=== PATIENT | female | born 1955 ===

== ENCOUNTER → 2018-10-04 | Outpatient (CLI) | payer MEDICARE, MEDICAID ==
[~2018-10-04] MED LIST: AMOX1TAB64 PO; CARV3.122 PO; CETI10TA32 PO; CHOL2000 PO; CITRIZINE; COREG; DOCU-131 PO; ERYTHROMYCIN 0.5% EACHEYE; HYDR25SU3 PR; HYDR25SU4 PR; HYDR25TA6 PO; MAGN400T36 PO; MONT10TA9 PO; OMEP-110 PO; OMEP20TA62 PO; OMEPRAZOLE; PANTOPRAZOLE PO; PREG150C PO; SINGULAIR INH; TRAM50TA2 PO; TRAMADOL; [UNRECOGNIZED DRUG - OTHER] INH; calcium PO
[2018-10-04 10:16] LABS: ALANINE AMINOTRANSFERASE 44 U/L (12-78); ALBUMIN 3.1 g/dL (3.4-5.0); ANION GAP 7 mmol/L (5-15); CALCIUM 8.3 mg/dL (8.5-10.1); CHLORIDE 108 mmol/L (98-107); CREATININE 0.68 mg/dL (0.55-1.02); TRIGLYCERIDES 136 mg/dL (50-200)
[2018-10-04 10:18] LABS: ALKALINE PHOSPHATASE 186 U/L (45-117); BILIRUBIN,TOTAL 0.8 mg/dL (0.2-1.0); TOTAL PROTEIN 6.6 g/dL (6.4-8.2)
== END | disposition home or self-care (01) ==
LOC: LAB 09:33
PROVIDERS: ATTEND Nurse Practitioner Family
DX: Z12.11 Encounter for screening for malignant neoplasm of colon (principal); A09 Infectious gastroenteritis and colitis, unspecified; R93.5 Abnormal findings on diagnostic imaging of other abdominal regions, including retroperitoneum; R79.89 Other specified abnormal findings of blood chemistry; Z86.010 Personal history of colon polyps
CPT/HCPCS: 36415; 80053; 82150; 82787; 83690; 84478

== ENCOUNTER 2018-11-04 20:56 | Inpatient (IN) | payer MEDICARE, MEDICAID ==
[~2018-11-04] VITALS: Ht 147.3 cm; Wt 114.7 kg
--- NOTE | 2018-11-04 21:15 | NUR ---
LA. REPORT RECEIVED FROM EMS. PT C/O SOB AND CHEST TIGHTNESS. HX OF ASTHMA. PT'S AOX4. RESPS EVEN AND UNLABORED. ALL MONITORS IN PLACE. CALL LIGHT WITHIN REACH. EDMD AT BEDSIDE TO EVALUATE.
[2018-11-04] MEDS ORDERED: NITROGLYCERIN SINGLE TAB 0.4 MG SL ONE (21:22)
[2018-11-04] MEDS ORDERED: ASPIRIN 81 MG TABLET CHEW ONE (21:22)
[2018-11-04] MEDS ORDERED: ASPIRIN 81 MG TABLET CHEW PO ONE (21:30)
[2018-11-04] MEDS ORDERED: NITROGLYCERIN SINGLE TAB 0.4 MG SL PRN (21:30)
[2018-11-04] MEDS ORDERED: SODIUM CHLORIDE FLUSH 10ML SYR IVF ONE (21:30)
[2018-11-04 22:00] LABS: BASOPHILS # (AUTO) 0.09 x10^3/uL (0-0.1); BASOPHILS % (AUTO) 2 % (0-1); EOSINOPHILS % (AUTO) 4 % (1-7); LYMPHOCYTES % (AUTO) 35 % (22-44); MD NO; MEAN CORPUSCULAR HGB CONC 33.2 g/dL (32.4-35.8); MEAN CORPUSCULAR VOLUME 99.5 fL (80-100); MEAN PLATELET VOLUME 9.2 fL (7.4-10.4); MONOCYTES # (AUTO) 0.35 x10^3/uL (0.2-0.8); MONOCYTES % (AUTO) 6 % (2-9); NEUTROPHILS # (AUTO) 2.97 x10^3/uL (1.8-6.8); NEUTROPHILS % (AUTO) 54 % (42-75); PLATELET COUNT 116 x10^3/uL (130-400); RED BLOOD COUNT 4.23 x10^6/uL (3.82-5.3); RED CELL DISTRIBUTION WIDTH 16.3 % (9.6-15.2)
[2018-11-04 22:11] LABS: ALANINE AMINOTRANSFERASE 39 U/L (12-78); ALBUMIN 3.4 g/dL (3.4-5.0); ANION GAP 10 mmol/L (5-15); CALCIUM 8.5 mg/dL (8.5-10.1); CHLORIDE 108 mmol/L (98-107); CREATININE 0.75 mg/dL (0.55-1.02)
[2018-11-04 22:15] LABS: ALKALINE PHOSPHATASE 166 U/L (45-117); BILIRUBIN,TOTAL 0.9 mg/dL (0.2-1.0); TOTAL PROTEIN 6.9 g/dL (6.4-8.2); TROPONIN I < 0.015 ng/mL (0.000-0.045)
--- NOTE | 2018-11-04 23:00 | NUR ---
REPORT GIVEN TO TAYLOR SOLER. ALL QUESTIONS ANSWERED.
[2018-11-04 23:18] VITALS: BP 129/79
[2018-11-04] MEDS ORDERED: HYDR12.575 PO (23:58)
[2018-11-04] MEDS ORDERED: MELO7.5O PO (23:58)
[2018-11-04] MEDS ORDERED: LISI-424 PO (23:58)
[2018-11-05] MEDS ORDERED: NITROGLYCERIN 0.4 MG BOTTLE (25 TABS) SL PRN (01:00)
[2018-11-05] MEDS ORDERED: BISACODYL 10 MG SUPP PR PRN (01:00)
[2018-11-05] MEDS ORDERED: ENALAPRILAT 1.25 MG/ML, 2ML IVPush PRN (01:00)
[2018-11-05] MEDS ORDERED: morphine SULFATE 10 MG/ML, 1ML IVPush PRN (01:00)
[2018-11-05] MEDS ORDERED: ONDANSETRON 2MG/ML, 2ML IVPush PRN (01:00)
[2018-11-05] MEDS ORDERED: NITROGLYCERIN 0.4 MG/SPRAY SL PRN (01:00)
[2018-11-05] MEDS ORDERED: PROMETHAZINE 25 MG/ML, 1ML IM PRN (01:00)
[2018-11-05] MEDS ORDERED: ACETAMINOPHEN 325 MG TABLET PO PRN (01:00)
[2018-11-05] MEDS ORDERED: POLYETHYLENE GLYCOL 17 GM PACKET PO PRN (01:00)
[2018-11-05 01:33] VITALS: BP 140/82
[2018-11-05] MEDS: SUCRALFATE 1 GM/10 ML UDC PO SCH ×5 (01:56→20:16)
[2018-11-05 05:40] LABS: CHOL/HDL RATIO 3.4; CHOLESTEROL, TOTAL 155 mg/dL (140-239); HDL CHOL % 30 % (28-40); HDL CHOLESTEROL (DIRECT) 46 mg/dL (40-60); LDL CHOLESTEROL,CALCULATED 93 mg/dL (54-169); TRIGLYCERIDES 81 mg/dL (50-200); TROPONIN I < 0.015 ng/mL (0.000-0.045); VLDL CHOLESTEROL 16 mg/dL (0-25)
[2018-11-05 06:40] VITALS: BP 132/85
[2018-11-05] MEDS: SENNA/DOCUSATE TABLET PO SCH (09:00)
[2018-11-05] MEDS: LISINOPRIL 5 MG TABLET PO SCH (09:26)
[2018-11-05] MEDS: HYDROCHLOROTHIAZIDE 12.5 MG CAPSULE PO SCH (09:28)
[2018-11-05] MEDS: PANTOPROZOLE 40MG TABLET PO SCH ×2 (09:28→16:22)
[2018-11-05] MEDS: PREGABALIN 150 MG CAPSULE PO SCH ×2 (09:28→20:17)
[2018-11-05 11:12] LABS: TROPONIN I < 0.015 ng/mL (0.000-0.045)
[2018-11-05 12:49] VITALS: BP 129/82
[2018-11-05 13:14] LABS: OCCULT BLOOD NEGATIVE (NEGATIVE)
[2018-11-05] MEDS: MONTELUKAST 10 MG TABLET PO SCH (20:16)
[2018-11-05 20:38] VITALS: BP 124/67
[2018-11-06 01:35] VITALS: BP 119/68
[2018-11-06 06:02] LABS: BASOPHILS # (AUTO) 0.03 x10^3/uL (0-0.1); BASOPHILS % (AUTO) 1 % (0-1); EOSINOPHILS % (AUTO) 4 % (1-7); LYMPHOCYTES # (AUTO) 2.01 x10^3/uL (1-3.4); LYMPHOCYTES % (AUTO) 39 % (22-44); MD NO; MEAN CORPUSCULAR HEMOGLOBIN 33.1 pg (27.0-34.8); MEAN CORPUSCULAR HGB CONC 33.3 g/dL (32.4-35.8); MEAN CORPUSCULAR VOLUME 99.6 fL (80-100); MEAN PLATELET VOLUME 9.2 fL (7.4-10.4); MONOCYTES # (AUTO) 0.43 x10^3/uL (0.2-0.8); MONOCYTES % (AUTO) 8 % (2-9); NEUTROPHILS # (AUTO) 2.53 x10^3/uL (1.8-6.8); NEUTROPHILS % (AUTO) 49 % (42-75); PLATELET COUNT 107 x10^3/uL (130-400); RED BLOOD COUNT 3.87 x10^6/uL (3.82-5.3); RED CELL DISTRIBUTION WIDTH 16.2 % (9.6-15.2)
[2018-11-06 06:15] VITALS: BP 115/60
[2018-11-06 06:17] LABS: ANION GAP 7 mmol/L (5-15); CALCIUM 8.1 mg/dL (8.5-10.1); CHLORIDE 109 mmol/L (98-107)
[2018-11-06] MEDS: SENNA/DOCUSATE TABLET PO SCH (09:00)
[2018-11-06 09:17] VITALS: BP 132/83
[2018-11-06] MEDS: SUCRALFATE 1 GM/10 ML UDC PO SCH ×3 (09:18→16:00)
[2018-11-06] MEDS: PANTOPROZOLE 40MG TABLET PO SCH ×2 (09:19→16:51)
[2018-11-06] MEDS: HYDROCHLOROTHIAZIDE 12.5 MG CAPSULE PO SCH (09:20)
[2018-11-06] MEDS: PREGABALIN 150 MG CAPSULE PO SCH (09:20)
[2018-11-06] MEDS: LISINOPRIL 5 MG TABLET PO SCH (09:21)
[2018-11-06] MEDS: MONTELUKAST 10 MG TABLET PO SCH (09:21)
[2018-11-06 10:53] LABS: OCCULT BLOOD NEGATIVE (NEGATIVE)
[2018-11-06] MEDS ORDERED: PANT40TA5 PO (11:57)
[2018-11-06] MEDS ORDERED: SUCR1ORA5 PO (11:57)
[2018-11-06 12:07] VITALS: BP 112/75
== END 2018-11-06 17:56 | disposition home or self-care (01) | DRG 392 ==
LOC: ED 21:55 → EDIP 22:30 → 4EST 23:31
PROVIDERS: ADMIT Family Medicine; ATTEND Family Medicine
DX: K20.8 Other esophagitis (principal); J45.901 Unspecified asthma with (acute) exacerbation; Z68.43 Body mass index [BMI] 50.0-59.9, adult; K29.00 Acute gastritis without bleeding; G89.29 Other chronic pain; M54.9 Dorsalgia, unspecified; E66.01 Morbid (severe) obesity due to excess calories; G47.33 Obstructive sleep apnea (adult) (pediatric); I10 Essential (primary) hypertension; K21.9 Gastro-esophageal reflux disease without esophagitis; M79.7 Fibromyalgia; Z79.899 Other long term (current) drug therapy; Z86.718 Personal history of other venous thrombosis and embolism; Z87.891 Personal history of nicotine dependence; Z90.49 Acquired absence of other specified parts of digestive tract; Z98.891 History of uterine scar from previous surgery
CPT/HCPCS: 36415; 71045; 80048; 80053; 80061; 82272; 83036; 83880; 84443; 84484; 85025; 93005; 93306; 99285; G0378; J2405

== ENCOUNTER 2018-11-08 07:00 | Emergency (ER) | payer MEDICARE, MEDICAID ==
[~2018-11-08] VITALS: Ht 147.3 cm; Wt 109.4 kg
[~2018-11-08 07:00] MED LIST changes: +HYDR12.575 PO; +LISI-424 PO; +MELO7.5O PO; +PANT40TA5 PO; +SUCR1ORA5 PO
--- NOTE | 2018-11-08 07:14 | NUR ---
PT WHEELED TO ROOM FROM TRIAGE AT THIS TIME. CHANGING INTO GOWN.
--- NOTE | 2018-11-08 07:22 | NUR ---
PT HERE FOR ABDOMINAL PAIN THAT STARTED YESTERDAY. PT STATES SHE WAS IN THE ER YESTERDAY AND DISCHARGED WITH GASTRITIS AND THIS MORNING AT 0100 SHE STARTED THROWING UP. HAS THROWN UP X6 WITH NO EMESIS, JUST DRY HEAVING. PT STATES SHE HAD DIARREA X1 YESTERDAY AND A NORMAL BM THIS MORNING. PT CURRENTLY SITTING ON [employer] MOANING STATING HER PAIN IS 10/10 AND THAT SHE IS NAUSEAS. VSS. PA AT BEDSIDE TO EVALUATE PT AT THIS TIME.
--- NOTE | 2018-11-08 07:29 | NUR ---
PT WHEELED TO BATHROOM WITH HELP FROM HER DAUGHTER AT THIS TIME. PREPARTED TO PROVIDE URINE SAMPLE.
[2018-11-08] MEDS ORDERED: MAALOX/HYOSCYAMINE/LIDOCAINE 45 ML BTL PO ONE (07:30)
[2018-11-08] MEDS ORDERED: ONDANSETRON ODT 4 MG PO ONE (07:30)
[2018-11-08] MEDS ORDERED: FAMOTIDINE 20 MG TABLET PO ONE (07:30)
[2018-11-08] MEDS ORDERED: FAMOTIDINE 20 MG TABLET ONE (07:33)
[2018-11-08] MEDS ORDERED: MAALOX/HYOSCYAMINE/LIDOCAINE 45 ML BTL ONE (07:33)
[2018-11-08] MEDS ORDERED: ONDANSETRON ODT 4 MG ONE (07:33)
--- NOTE | 2018-11-08 07:37 | NUR ---
PT BACK FROM BATHROOM, URINE SAMPLE PROVIDED. PT SITTING ON GURNEY. MEDICATED PER EMAR. VASQUEZ. VSS. LAB AT BEDSIDE TO DRAW BLOOD.
[2018-11-08 07:51] LABS: BASOPHILS # (AUTO) 0.02 x10^3/uL (0-0.1); BASOPHILS % (AUTO) 1 % (0-1); EOSINOPHILS # (AUTO) 0.07 x10^3/uL (0-0.4); EOSINOPHILS % (AUTO) 2 % (1-7); LYMPHOCYTES # (AUTO) 1.72 x10^3/uL (1-3.4); LYMPHOCYTES % (AUTO) 38 % (22-44); MD NO; MEAN CORPUSCULAR HEMOGLOBIN 32.7 pg (27.0-34.8); MEAN CORPUSCULAR HGB CONC 33.7 g/dL (32.4-35.8); MEAN PLATELET VOLUME 8.8 fL (7.4-10.4); MONOCYTES % (AUTO) 7 % (2-9); NEUTROPHILS # (AUTO) 2.44 x10^3/uL (1.8-6.8); NEUTROPHILS % (AUTO) 54 % (42-75); PLATELET COUNT 127 x10^3/uL (130-400); RED BLOOD COUNT 4.36 x10^6/uL (3.82-5.3); RED CELL DISTRIBUTION WIDTH 15.7 % (9.6-15.2)
[2018-11-08 07:52] LABS: MICROSCOPIC NOT IND
[2018-11-08 08:02] LABS: ALANINE AMINOTRANSFERASE 43 U/L (12-78); ALBUMIN 3.4 g/dL (3.4-5.0); ANION GAP 6 mmol/L (5-15); CALCIUM 8.6 mg/dL (8.5-10.1); CHLORIDE 109 mmol/L (98-107)
--- NOTE | 2018-11-08 08:02 | NUR ---
PT GIVEN BLANKET AT THIS TIME. REPOSITIONED ON GURNEY. PT STATES SHE IS FEELING BETTER AT THIS TIME. LYNETTEN. VSS. CALL LIGHT IN REACH.
[2018-11-08 08:04] LABS: CULTURE INDICATED? NO
[2018-11-08 08:05] LABS: ALKALINE PHOSPHATASE 123 U/L (45-117); BILIRUBIN,TOTAL 1.1 mg/dL (0.2-1.0)
[2018-11-08 08:23] VITALS: BP 118/56
--- NOTE | 2018-11-08 08:39 | NUR ---
PT AWARE OF D/C PLAN. GETTING DRESSED NOW.
== END 2018-11-08 08:54 | disposition home or self-care (01) ==
LOC: ED 07:43
DX: K21.9 Gastro-esophageal reflux disease without esophagitis (principal); K52.9 Noninfective gastroenteritis and colitis, unspecified; I10 Essential (primary) hypertension; J45.909 Unspecified asthma, uncomplicated; G89.29 Other chronic pain; Z90.89 Acquired absence of other organs; Z90.49 Acquired absence of other specified parts of digestive tract
CPT/HCPCS: 36415; 80053; 81003; 83690; 85025; 93005; 99284; Q0162

== ENCOUNTER 2020-04-24 21:00 | Emergency (ER) | payer MEDICARE, MEDICAID ==
[~2020-04-24] VITALS: Ht 147.3 cm; Wt 103.6 kg
[~2020-04-24 21:00] MED LIST changes: -MONT10TA9 PO; +MONT10TA96 PO; -PANT40TA5 PO; +PANT40TA6 PO
[2020-04-24] MEDS ORDERED: ONDANSETRON 2MG/ML, 2ML IVPush ONE (21:30)
[2020-04-24] MEDS ORDERED: MORPHINE SULFATE 4 MG/ML, 1ML IVPush PRN (21:30)
[2020-04-24] MEDS ORDERED: ONDANSETRON 2MG/ML, 2ML ONE (21:50)
[2020-04-24] MEDS ORDERED: MORPHINE SULFATE 4 MG/ML, 1ML ONE (21:50)
[2020-04-24 21:57] LABS: BASOPHILS % (AUTO) 1 % (0-1); EOSINOPHILS % (AUTO) 1 % (1-7); LYMPHOCYTES % (AUTO) 32 % (22-44); MEAN CORPUSCULAR HEMOGLOBIN 36.8 pg (27.0-34.8); MEAN CORPUSCULAR HGB CONC 35.8 g/dL (32.4-35.8); MEAN PLATELET VOLUME 8.1 fL (7.4-10.4); MONOCYTES % (AUTO) 7 % (2-9); NEUTROPHILS % (AUTO) 59 % (42-75); PLATELET COUNT 122 x10^3/uL (130-400); RED BLOOD COUNT 3.95 x10^6/uL (3.82-5.3); RED CELL DISTRIBUTION WIDTH 14.3 % (9.6-15.2)
[2020-04-24 22:09] LABS: ALANINE AMINOTRANSFERASE 29 U/L (12-78); ALBUMIN 3.4 g/dL (3.4-5.0); ANION GAP 6 mmol/L (5-15); CALCIUM 8.8 mg/dL (8.5-10.1); CHLORIDE 110 mmol/L (98-107); CREATININE 0.68 mg/dL (0.55-1.02)
--- NOTE | 2020-04-24 22:10 | NUR ---
Patient ambulated to room with steady gait. Patient states she has right flank/upper abdominal pain. Patient states that it started yesterday and has had loose stool "few times" Patient alert and oriented. Medicated per JUN, Patient resting at this time. VSS, Call light within reach
[2020-04-24 22:13] LABS: ALKALINE PHOSPHATASE 110 U/L (45-117); BILIRUBIN,TOTAL 1.5 mg/dL (0.2-1.0); TOTAL PROTEIN 6.8 g/dL (6.4-8.2); TROPONIN I < 0.015 ng/mL (0.000-0.045)
[2020-04-24 22:15] LABS: MD SCAN
[2020-04-24 22:21] LABS: MICROSCOPIC NOT IND
[2020-04-24 23:08] VITALS: BP 120/78
== END 2020-04-24 23:15 | disposition home or self-care (01) ==
LOC: ED 22:30
DX: K57.32 Diverticulitis of large intestine without perforation or abscess without bleeding (principal); N28.1 Cyst of kidney, acquired; G89.29 Other chronic pain; R10.12 Left upper quadrant pain; R19.7 Diarrhea, unspecified; R05 Cough; I10 Essential (primary) hypertension; K21.9 Gastro-esophageal reflux disease without esophagitis; J45.909 Unspecified asthma, uncomplicated; Z90.89 Acquired absence of other organs; Z90.49 Acquired absence of other specified parts of digestive tract
CPT/HCPCS: 36415; 74176; 80053; 81003; 83690; 84484; 85025; 93005; 96374; 96375; 99285; J2270; J2405

== ENCOUNTER 2020-05-29 19:41 | Emergency (ER) | payer MEDICARE, MEDICAID ==
[~2020-05-29] VITALS: Ht 147.3 cm; Wt 100.0 kg
[~2020-05-29 19:41] MED LIST changes: -LISI-424 PO; +LISI-606 PO; +MONT10TA17 PO; -MONT10TA96 PO
--- NOTE | 2020-05-29 20:10 | NUR ---
Raoul miller in [facility] - 05/29/20 at 2117 by [email or web address] URINE SENT TO LAB
--- NOTE | 2020-05-29 20:30 | NUR ---
pt ambulated to room 15, and placed in bed and on cr monitor, and c/o pain to abdomen, left side upper and lower quad. piv started to left AC x1 attempt, 20g and blood drawn and sent to lab. Pt given ua cup to collect urine sample, but says she just went and will go as soon as she has an urge. pt resting in bed, a&ox4, and call light within reach.
[2020-05-29] MEDS ORDERED: FAMOTIDINE 20 MG TABLET PO ONE (21:00)
[2020-05-29] MEDS ORDERED: MAALOX/HYOSCYAMINE/LIDOCAINE 45 ML BTL PO ONE (21:00)
[2020-05-29] MEDS ORDERED: FAMOTIDINE 20 MG TABLET ONE (21:18)
[2020-05-29] MEDS ORDERED: MAALOX/HYOSCYAMINE/LIDOCAINE 45 ML BTL ONE (21:18)
--- NOTE | 2020-05-29 21:20 | NUR ---
PT MEDICATED PER MAR AT THIS TIME.
[2020-05-29 21:34] LABS: BASOPHILS % (AUTO) 1 % (0-1); EOSINOPHILS % (AUTO) 1 % (1-7); LYMPHOCYTES % (AUTO) 41 % (22-44); MEAN CORPUSCULAR HEMOGLOBIN 36.3 pg (27.0-34.8); MEAN CORPUSCULAR HGB CONC 35.6 g/dL (32.4-35.8); MEAN PLATELET VOLUME 8.7 fL (7.4-10.4); MONOCYTES % (AUTO) 7 % (2-9); NEUTROPHILS % (AUTO) 50 % (42-75); PLATELET COUNT 106 x10^3/uL (130-400); RED BLOOD COUNT 4.16 x10^6/uL (3.82-5.3); RED CELL DISTRIBUTION WIDTH 14.6 % (9.6-15.2)
--- NOTE | 2020-05-29 21:34 | NUR ---
PT UP TO RESTROOM AT THIS TIME STEADY GAIT.
[2020-05-29 21:35] LABS: MICROSCOPIC NOT IND
[2020-05-29 21:43] LABS: MD NO
[2020-05-29 21:46] LABS: ALANINE AMINOTRANSFERASE 28 U/L (12-78); ALBUMIN 3.4 g/dL (3.4-5.0); ANION GAP 9 mmol/L (5-15); CALCIUM 8.8 mg/dL (8.5-10.1); CHLORIDE 109 mmol/L (98-107); CREATININE 0.59 mg/dL (0.55-1.02)
--- NOTE | 2020-05-29 21:48 | NUR ---
PT STS SHE FEELS SO MUCH BETTER AFTER MEDICATIONS GIVEN, "MIRACLE STUFF"
[2020-05-29 21:50] LABS: ALKALINE PHOSPHATASE 115 U/L (45-117); BILIRUBIN,TOTAL 1.3 mg/dL (0.2-1.0); TROPONIN I < 0.015 ng/mL (0.000-0.045)
[2020-05-29] MEDS ORDERED: OMNIPAQUE 350 MG/ML, 100ML BOTTLE ONE (23:02)
[2020-05-29 23:18] VITALS: BP 124/83
--- NOTE | 2020-05-29 23:18 | NUR ---
PT RESTING ON GURNEY NO NEEDS AT THIS TIME
== END 2020-05-30 00:10 | disposition home or self-care (01) ==
LOC: ED 23:34
DX: K29.00 Acute gastritis without bleeding (principal); K74.60 Unspecified cirrhosis of liver; R10.13 Epigastric pain; R11.0 Nausea; I10 Essential (primary) hypertension; K21.9 Gastro-esophageal reflux disease without esophagitis; G89.29 Other chronic pain; J45.909 Unspecified asthma, uncomplicated; E66.9 Obesity, unspecified; R94.31 Abnormal electrocardiogram [ECG] [EKG]; Z68.42 Body mass index [BMI] 45.0-49.9, adult
CPT/HCPCS: 36415; 74177; 80053; 81003; 83690; 84484; 85025; 93005; 99285; Q9967